=== PATIENT | female | born 1995 ===

== ENCOUNTER 2017-05-06 13:43 | Emergency (ER) | payer OTHER ==
[2017-05-06 13:48] VITALS: BMI 22.9
[2017-05-06 13:49] VITALS: BP 134/77; PULSE 80; RESP 18; TEMP 99.5; O2SAT 98
[2017-05-06 14:49] LABS: RBC URINE 52 /hpf (0-3); URINE BACTERIA OCC (<OCC); URINE BILIRUBIN NEGATIVE (NEGATIVE); URINE BLOOD MODERATE (NEGATIVE); URINE COLOR YELLOW (YELLOW); URINE GLUCOSE (UA) NEG (Normal); URINE KETONE NEGATIVE (NEGATIVE); URINE LEUKOCYTE ESTERASE LARGE Leu/uL (Negative); URINE PROTEIN 100 mg/dL (NEGATIVE); URINE UROBILINOGEN 0.2-1.0 mg/dL (0.2-1.0); WBC CLUMPS MANY /hpf; WBC URINE 1378 /hpf (0-5)
--- NOTE | 2017-05-06 15:10 | ED PDOC ---
HPI: Female Pain Time Seen by Provider: 05/06/17 14:01 Chief Complaint (Nursing): Abdominal Pain Chief Complaint (Provider): abdominal pain History Per: Patient History/Exam Limitations: no limitations Onset/Duration Of Symptoms: Days (14) Current Symptoms Are (Timing): Still Present Quality Of Discomfort: Cramping (suprapubic) Associated Symptoms: denies: Fever, Chills, Nausea, Vomiting, Diarrhea, Loss Of Appetite, Back Pain, Chest Pain, Constipation, Urinary Symptoms Abnormal Vaginal Bleeding: No Past Medical History Reviewed: Historical Data, Nursing Documentation, Vital Signs Vital Signs: Last Vital Signs Temp 99.5 F 05/06/17 13:48 Pulse 80 05/06/17 13:48 Resp 18 05/06/17 13:48 BP 134/77 05/06/17 13:48 Pulse Ox 98 05/06/17 13:48 - Medical History PMH: No Chronic Diseases - Surgical History Surgical History: Cholecystectomy, (1x in 2011) - Family History Family History: States: Unknown Family Hx - Home Medications Home Medications: Ambulatory Orders Medication Instructions Recorded Famotidine [Pepcid] 20 mg PO BID #28 tab 09/15/16 Naproxen [Naprosyn] 500 mg PO BID PRN #20 tablet 09/15/16 Nitrofurantoin Macrocrystals 100 mg PO BID #14 cap 05/06/17 [Macrobid] - Allergies Allergies/Adverse Reactions: Allergies Allergy/AdvReac Type Severity Reaction Status Date / Time No Known Allergies Allergy Verified 09/15/16 11:14 Review of Systems ROS Statement: Except As Marked, All Systems Reviewed And Found Negative Constitutional: Negative for: Fever, Chills Genitourinary Female: Positive for: Dysuria Physical Exam - Reviewed Nursing Documentation Reviewed: Yes Vital Signs Reviewed: Yes - Physical Exam Appears: Positive for: Non-toxic, No Acute Distress Head Exam: Positive for: NORMOCEPHALIC Skin: Positive for: Normal Color, Warm, DRY Cardiovascular/Chest: Positive for: Regular Rate, Rhythm Respiratory: Positive for: CNT, Normal Breath Sounds Gastrointestinal/Abdominal: Positive for: Bowel Sounds, Soft, Tenderness ( suprapubic) Back: Negative for: L CVA Tenderness, R CVA Tenderness Extremity: Positive for: Normal ROM Neurologic/Psych: Positive for: Alert, Oriented - Laboratory Results Urine dip results: Positive for: Leukocyte Esterase - ECG O2 Sat by Pulse Oximetry: 98 Medical Decision Making Medical Decision Making: pt with UTI but stable VS and well appearing will be d/c with macrobid and given difclan PO in ED. culture sent Disposition - Clinical Impression Clinical Impression: UTI (urinary tract infection) - Patient ED Disposition Is Patient to be Admitted: No Counseled Patient/Family Regarding: Studies Performed, Diagnosis, Need For Followup, Rx Given - Disposition Disposition: Routine/Home Disposition Time: 15:12 Condition: STABLE Prescriptions: Nitrofurantoin Macrocrystals [Macrobid] 100 mg PO BID #14 cap Instructions: Urinary Tract Infection in Women (ED) Forms: [employer] (Azeri) Orders - Orders (Non-Med) Orders Category Date Time Status UPreg [ED Urine (POC)] Stat ED Care 05/06/17 14:02 Ordered Fluconazole [Diflucan] Med 05/06/17 15:13 Once 150 mg PO ONCE ONE URINE CULTURE Stat Micro 05/06/17 15:04 Uncollected URINALYSIS Stat URINALYSIS 05/06/17 14:32 Completed - Meds (Active ED) Fluconazole (Diflucan) 150 mg PO ONCE ONE Stop: 05/06/17 15:14
[2017-05-06] MEDS ORDERED: Fluconazole 150 MG TAB PO ONE (16:00)
== END 2017-05-06 15:43 | disposition home or self-care (01) ==
LOC: H.ER 13:43
DX: N39.0 Urinary tract infection, site not specified (principal)

== ENCOUNTER 2017-05-06 19:07 | Emergency (ER) | payer OTHER ==
[2017-05-06 19:08] VITALS: BMI 22.9
[2017-05-06 19:18] VITALS: BP 109/65; PULSE 92; RESP 16; TEMP 99.1; O2SAT 98
[2017-05-06] MEDS ORDERED: cefTRIAXone (Rocephin) 1 gm Inj IVPB ONE (19:25)
[2017-05-06] MEDS ORDERED: Sodium Chloride 0.9% 1,000 ML IV STA (19:26)
--- NOTE | 2017-05-06 19:29 | ED PDOC ---
HPI: Female Pain Time Seen by Provider: 05/06/17 19:22 Chief Complaint (Nursing): Female Genitourinary Chief Complaint (Provider): Abdominal pain History Per: Patient History/Exam Limitations: no limitations Onset/Duration Of Symptoms: Worse Since (discharge 2 hours ago) Current Symptoms Are (Timing): Still Present Additional Complaint(s): Trini is a 22-year-old female who was discharged from ED 2 hours ago after UTI diagnosis and prescribed Macrobid, and now returns to the ED for worsening abdominal pain with associated headache and fever. Denies vomiting. Patient states she did take 1 tab of macrobid prescribed earlier today. PMD: Unknown Past Medical History Reviewed: Historical Data, Nursing Documentation, Vital Signs Vital Signs: Last Vital Signs Temp 99.1 F 05/06/17 19:15 Pulse 92 H 05/06/17 19:15 Resp 16 05/06/17 19:15 BP 109/65 05/06/17 19:15 Pulse Ox 98 05/06/17 19:15 - Medical History PMH: No Chronic Diseases - Surgical History Surgical History: Cholecystectomy, (1x in 2011) - Family History Family History: States: Unknown Family Hx - Social History Current smoker - smoking cessation education provided: No Alcohol: None Drugs: Denies - Home Medications Home Medications: Ambulatory Orders Medication Instructions Recorded Famotidine [Pepcid] 20 mg PO BID #28 tab 09/15/16 Naproxen [Naprosyn] 500 mg PO BID PRN #20 tablet 09/15/16 Ciprofloxacin HCl [Cipro] 500 mg PO BID #14 tablet 05/06/17 Ibuprofen [Motrin] 600 mg PO Q8 PRN #21 tab 05/06/17 Nitrofurantoin Macrocrystals 100 mg PO BID #14 cap 05/06/17 [Macrobid] Phenazopyridine HCl [Pyridium] 100 mg PO BID PRN #6 tablet 05/06/17 - Allergies Allergies/Adverse Reactions: Allergies Allergy/AdvReac Type Severity Reaction Status Date / Time No Known Allergies Allergy Verified 05/06/17 19:14 Review of Systems ROS Statement: Except As Marked, All Systems Reviewed And Found Negative Constitutional: Positive for: Fever Gastrointestinal: Positive for: Abdominal Pain (worsened). Negative for: Vomiting Neurological: Positive for: Headache Physical Exam - Reviewed Nursing Documentation Reviewed: Yes Vital Signs Reviewed: Yes - Physical Exam Appears: Positive for: Non-toxic, No Acute Distress Head Exam: Positive for: ATRAUMATIC, NORMOCEPHALIC Skin: Positive for: Normal Color, Warm, Dry Eye Exam: Positive for: EOMI, Normal appearance, PERRL Neck: Positive for: Normal, Painless ROM, Supple Cardiovascular/Chest: Positive for: Regular Rate, Rhythm. Negative for: Murmur Respiratory: Positive for: Normal Breath Sounds. Negative for: Respiratory Distress Gastrointestinal/Abdominal: Positive for: Soft, Tenderness (Suprapubic tenderness on palpation) Back: Positive for: L CVA Tenderness Extremity: Positive for: Normal ROM. Negative for: Pedal Edema, Deformity Neurologic/Psych: Positive for: Alert, Oriented - Laboratory Results Result Diagrams: 05/06/17 19:51 05/06/17 19:51 - ECG O2 Sat by Pulse Oximetry: 98 (RA) Pulse Ox Interpretation: Normal Medical Decision Making Medical Decision Making: Time: 19:25 Initial Impression: UTI Initial Plan: --Started fluids, Rocephin, and Toradol --Pending CMP, CBC, and urine culture Scribe Attestation: Documented by Bre Weston, acting as a scribe for Nikia Oneill PA-C Provider Scribe Attestation: All medical record entries made by the Scribe were at my direction and personally dictated by me. I have reviewed the chart and agree that the record accurately reflects my personal performance of the history, physical exam, medical decision making, and the department course for this patient. I have also personally directed, reviewed, and agree with the discharge instructions and disposition. Disposition - Clinical Impression Clinical Impression: Pyelonephritis - Patient ED Disposition Is Patient to be Admitted: No - Disposition Referrals: [facility] [Outside] Disposition: Routine/Home Disposition Time: 21:11 Condition: FAIR Prescriptions: Ciprofloxacin HCl [Cipro] 500 mg PO BID #14 tablet Ibuprofen [Motrin] 600 mg PO Q8 PRN #21 tab PRN Reason: Pain, Moderate (4-7) Phenazopyridine HCl [Pyridium] 100 mg PO BID PRN #6 tablet PRN Reason: Urinary Discomt Instructions: Acute Pyelonephritis (DC) Forms: [employer] (Portuguese), [facility] ED School/Work Excuse Print Language: ERITREAN
[2017-05-06 20:05] LABS: BASO % 0.2 % (0.0-2.0); EOS % 0.1 % (0.0-4.0); HEMATOCRIT 40.7 % (34.0-47.0); LYMPH # 1.1 K/uL (1.0-4.3); LYMPH % 10.5 % (20.0-40.0); MEAN CELL VOLUME 89.6 fl (81.0-99.0); MEAN CORPUSCULAR HEMOGLOBIN 31.8 pg (27.0-31.0); MEAN CORPUSCULAR HGB CONC 35.4 g/dL (33.0-37.0); MEAN PLATELET VOLUME 8.4 fl (7.2-11.7); MONO # 0.7 K/uL (0.0-0.8); MONO % 6.9 % (0.0-10.0); NEUT # 8.8 K/uL (1.8-7.0); NEUT % 82.3 % (50.0-75.0); RED CELL DISTRIBUTION WIDTH 12.7 % (11.5-14.5); WHITE BLOOD COUNT 10.7 K/uL (4.8-10.8)
[2017-05-06 20:07] LABS: ALB/GLOB RATIO 1.3 (1.0-2.1); ALKALINE PHOSPHATASE 68 U/L (38-126); ALT/SGPT 28 U/L (9-52); AST/SGOT 20 U/L (14-36); BILIRUBIN,TOTAL 1.1 mg/dl (0.2-1.3); BLOOD UREA NITROGEN 8 mg/dl (7-17); CALCIUM 9.2 mg/dL (8.4-10.2); CARBON DIOXIDE 25 mmol/L (22-30); CHLORIDE 101 mmol/L (98-107); GFR AFRICAN-AMERICAN > 60; GLUCOSE,RANDOM 88 mg/dL (65-105); POTASSIUM 3.7 MMOL/L (3.6-5.0); SODIUM 137 mmol/l (132-148); TOTAL PROTEIN 7.3 G/DL (6.3-8.2)
== END 2017-05-06 22:03 | disposition home or self-care (01) ==
LOC: H.ER 19:07
DX: N10 Acute pyelonephritis (principal)
CPT/HCPCS: 80053; 85025; 87086; 87181; 96365; 96366; 96375; 99284; J0696; J1885; J7040

== ENCOUNTER 2018-02-07 20:38 | Emergency (ER) | payer SELFPAY ==
[2018-02-07 20:39] VITALS: BMI 22.9
[2018-02-07 20:45] VITALS: BP 104/70; PULSE 78; RESP 18; TEMP 97.9; O2SAT 99
--- NOTE | 2018-02-07 21:27 | ED PDOC ---
HPI: Female Pain Time Seen by Provider: 02/07/18 20:45 Chief Complaint (Nursing): Female Genitourinary Chief Complaint (Provider): Suprapubic pain, hot urination History Per: Patient History/Exam Limitations: no limitations Onset/Duration Of Symptoms: Days (2 weeks ) Current Symptoms Are (Timing): Still Present Severity: Moderate Pain Scale Rating Of: 5 Quality Of Discomfort: Burning Associated Symptoms: denies: Fever, Chills, Nausea, Vomiting, Diarrhea, Loss Of Appetite, Back Pain, Chest Pain Alleviating Factors: None Additional Complaint(s): LMP 2 weeks ago. Pt reports suprapubic pain and hot sensation during urination x 2 weeks. Past Medical History Reviewed: Historical Data, Nursing Documentation, Vital Signs Vital Signs: Last Vital Signs Temp 97.9 F 02/07/18 20:43 Pulse 78 02/07/18 20:43 Resp 18 02/07/18 20:43 BP 104/70 02/07/18 20:43 Pulse Ox 99 02/07/18 20:43 - Medical History PMH: No Chronic Diseases - Surgical History Surgical History: Cholecystectomy, (1x in 2011) - Family History Family History: States: Unknown Family Hx - Living Arrangements Living Arrangements: With Family - Social History Current smoker - smoking cessation education provided: No Alcohol: None Drugs: Denies - Home Medications Home Medications: Ambulatory Orders Medication Instructions Recorded Famotidine [Pepcid] 20 mg PO BID #28 tab 09/15/16 Naproxen [Naprosyn] 500 mg PO BID PRN #20 tablet 09/15/16 Ciprofloxacin HCl [Cipro] 500 mg PO BID #14 tablet 05/06/17 Ibuprofen [Motrin] 600 mg PO Q8 PRN #21 tab 05/06/17 Nitrofurantoin Macrocrystals 100 mg PO BID #14 cap 05/06/17 [Macrobid] Phenazopyridine HCl [Pyridium] 100 mg PO BID PRN #6 tablet 05/06/17 Ciprofloxacin [Cipro] 500 mg PO BID #10 tab 02/07/18 - Allergies Allergies/Adverse Reactions: Allergies Allergy/AdvReac Type Severity Reaction Status Date / Time No Known Allergies Allergy Verified 05/06/17 19:14 Review of Systems ROS Statement: Except As Marked, All Systems Reviewed And Found Negative Constitutional: Negative for: Fever Gastrointestinal: Positive for: Abdominal Pain. Negative for: Nausea, Vomiting Genitourinary Female: Positive for: Dysuria Physical Exam - Reviewed Nursing Documentation Reviewed: Yes Vital Signs Reviewed: Yes - Physical Exam Appears: Positive for: Well, Non-toxic, No Acute Distress Head Exam: Positive for: ATRAUMATIC, NORMAL INSPECTION, NORMOCEPHALIC Skin: Positive for: Normal Color, Warm, DRY Eye Exam: Positive for: Normal appearance ENT: Positive for: Normal ENT Inspection Neck: Positive for: Normal, Painless ROM Cardiovascular/Chest: Positive for: Regular Rate, Rhythm Respiratory: Positive for: CNT, Normal Breath Sounds Gastrointestinal/Abdominal: Positive for: Tenderness (Mild suprapubic tenderness ). Negative for: Guarding, Rebound Back: Positive for: Normal Inspection Extremity: Positive for: Normal ROM Neurologic/Psych: Positive for: Alert, Oriented - Laboratory Results Urine POC: Negative - ECG O2 Sat by Pulse Oximetry: 99 Pulse Ox Interpretation: Normal Medical Decision Making Medical Decision Making: (+) leuks Disposition - Clinical Impression Clinical Impression: UTI (urinary tract infection) - Patient ED Disposition Is Patient to be Admitted: No Counseled Patient/Family Regarding: Diagnosis, Need For Followup, Rx Given - Disposition Disposition: Routine/Home Disposition Time: 22:28 Condition: STABLE Prescriptions: Ciprofloxacin [Cipro] 500 mg PO BID #10 tab Instructions: Urinary Tract Infection, Adult (DC) Forms: [employer] (Japanese)
[2018-02-07 21:43] LABS: SQUAMOUS EPITHIAL 4 /hpf (0-5); URINE BILIRUBIN NEGATIVE (NEGATIVE); URINE BLOOD LARGE (NEGATIVE); URINE CLARITY CLOUDY (Clear); URINE COLOR YELLOW (YELLOW); URINE GLUCOSE (UA) NEG (Normal); URINE LEUKOCYTE ESTERASE LARGE Leu/uL (Negative); URINE PROTEIN 100 mg/dL (NEGATIVE); URINE UROBILINOGEN 0.2-1.0 mg/dL (0.2-1.0)
== END 2018-02-07 22:35 | disposition home or self-care (01) ==
LOC: H.ER 20:38
DX: N39.0 Urinary tract infection, site not specified (principal)